=== PATIENT | female | born 1985 | race Caucasian/White ===

== ENCOUNTER 2020-11-13 18:19 | Inpatient (IN) ==
[2020-11-13 19:22] LABS: Urine Appearance Cloudy; Urine Bilirubin Negative (Negative); Urine Blood Negative (Negative); Urine Color Yellow; Urine Glucose Negative (Negative); Urine Ketones Negative (Negative); Urine Nitrite Negative (Negative); Urine Protein Negative (Negative); Urine Urobilinogen Negative (Negative)
[2020-11-13 19:41] LABS: Urine Benzodiazepine Screen None Detected (None Detect); Urine Cannabinoids Screen None Detected (None Detect); Urine Opiates Screen None Detected (None Detect)
[2020-11-13] MEDS ORDERED: Dinoprostone 10 MG VAG.SUPP VAGINAL ONE (19:53)
[2020-11-13 20:12] LABS: ABS Lymphocytes 2.2 10^3/ul (1.0-4.8); ABS Monocytes 0.7 10^3/ul (0-0.8); ABS Neutrophils 5.3 10^3/ul (1.5-7.7); Eosinophil % 0.5 %; Hematocrit 37 % (35-47); Hemoglobin 12.4 g/dL (12.0-16.0); Lymphocyte % 26.4 %; Mean Corpuscular HGB Conc 34 g/dL (31-36); Mean Corpuscular Hemoglobin 31 pg (27-31); Mean Corpuscular Volume 93 fL (80-97); Mean Platelet Volume 12.3 fL (7.4-10.4); Platelet Count 149 10^3/uL (150-450); Red Blood Count 3.96 10^6 /uL (3.70-4.87); Red Cell Distribution Width 14 % (10-15); White Blood Count 8.3 10^3/uL (3.5-10.8)
[2020-11-13 20:53] LABS: Albumin 3.2 g/dL (3.2-5.2); Calcium 8.8 mg/dL (8.6-10.3); Potassium 4.3 mmol/L (3.5-5.0); Total Bilirubin 0.3 mg/dL (0.2-1.0)
[2020-11-13 20:59] LABS: Albumin/Globulin Ratio 1.5 (1-3); BUN/Creatinine Ratio 18.3 (8-20); EGFR African American 138.5 (>60); EGFR Non-African American 114.4 (>60); Globulin 2.2 g/dL (2-4); Total Protein 5.4 g/dL (6.4-8.9); Uric Acid 6.1 mg/dL (2.3-6.6)
[2020-11-14] MEDS ORDERED: Buffered Lidocaine 1% SYRIN 1 ml INTRADERM ONE (10:50)
[2020-11-14] MEDS ORDERED: Lactated Ringers 1000 ml BAG 1,000 ML IV ONE (10:50)
[2020-11-14] MEDS ORDERED: Lactated Ringers 1000 ml BAG 1,000 ML IV SCH (11:00)
[2020-11-14] MEDS ORDERED: Dinoprostone 10 MG VAG.SUPP VAGINAL ONE (19:46)
[2020-11-14] MEDS ORDERED: Penicillin G Potassium IV 5,000,000 UNITS in NS 0.9% 100 ml BAG 100 ML IVPB ONE (21:24)
[2020-11-14 22:40] LABS: Hematocrit 36 % (35-47); Hemoglobin 12.4 g/dL (12.0-16.0); Mean Corpuscular HGB Conc 34 g/dL (31-36); Mean Corpuscular Hemoglobin 32 pg (27-31); Mean Corpuscular Volume 92 fL (80-97); Platelet Count 155 10^3/uL (150-450); Red Blood Count 3.94 10^6 /uL (3.70-4.87); Red Cell Distribution Width 13 % (10-15); White Blood Count 8.8 10^3/uL (3.5-10.8)
[2020-11-14 22:44] LABS: ABS Basophils 0.1 10^3/ul (0-0.2); ABS Lymphocytes 2.1 10^3/ul (1.0-4.8); ABS Monocytes 0.8 10^3/ul (0-0.8); ABS Neutrophils 5.8 10^3/ul (1.5-7.7); Eosinophil % 0.4 %; Lymphocyte % 23.7 %
[2020-11-14 23:09] LABS: ALT 18 U/L (7-52); Albumin 3.2 g/dL (3.2-5.2); Albumin/Globulin Ratio 1.3 (1-3); Alkaline Phosphatase 229 U/L (34-104); BUN/Creatinine Ratio 17.5 (8-20); Blood Urea Nitrogen 11 mg/dL (6-24); CO2 Carbon Dioxide 18 mmol/L (22-32); Calcium 9.1 mg/dL (8.6-10.3); Chloride 107 mmol/L (101-111); EGFR African American 130.9 (>60); EGFR Non-African American 108.2 (>60); Globulin 2.5 g/dL (2-4); Glucose 116 mg/dL (70-100); Sodium 134 mmol/L (135-145); Total Protein 5.7 g/dL (6.4-8.9); Uric Acid 5.2 mg/dL (2.3-6.6)
[2020-11-14 23:28] LABS: Anion Gap 9 mmol/L (2-11)
[2020-11-15] MEDS ORDERED: Vancomycin 2,000 MG in NS 0.9% 250 ml 250 ML IVPB ONE
[2020-11-15] MEDS ORDERED: Penicillin G Potassium IV 3,000,000 UNITS in NS 0.9% 100 ml BAG 100 ML IVPB SCH (03:00)
[2020-11-15] MEDS: Clindamycin 900 MG/D5W BAG 900 MG/50 ML BAG IVPB SCH ×3 (03:27→19:32)
[2020-11-15] MEDS ORDERED: OBEPIDURAL 250 ML EPIDURAL ONE (04:20)
[2020-11-15] MEDS: Gentamicin ADULT 450 MG in NS 0.9% 100 ml BAG 100 ML IVPB SCH (05:33)
[2020-11-15] MEDS ORDERED: Lactated Ringers 1000 ml BAG 1,000 ML IV ONE (05:47)
[2020-11-15] MEDS ORDERED: Lactated Ringers 1000 ml BAG 500 ML IV PRN ×2 (05:47)
[2020-11-15] MEDS ORDERED: Sodium Citrate/Citric Acid LIQ 15 ML UDC PO PRN (05:47)
[2020-11-15] MEDS ORDERED: Phenylephrine 40 mcg/mL 10mL (400mcg) SYRINGE IV PUSH PRN ×2 (05:47)
[2020-11-15] MEDS ORDERED: OBEPIDURAL 250 ML EPIDURAL SCH (06:00)
[2020-11-15] MEDS: Oxytocin in LR 20 UNITS/1,000 ML BAG IVPB SCH (06:29)
[2020-11-15] MEDS ORDERED: Vancomycin 1,000 MG in NS 0.9% 250 ml 250 ML IVPB SCH (12:00)
[2020-11-15] MEDS: Lactated Ringers 1000 ml BAG 1,000 ML IV SCH ×2 (14:35→18:48)
[2020-11-15] MEDS ORDERED: Calcium Carb (TUMS) 500 mg CHEW TAB PO PRN (17:01)
[2020-11-16] MEDS: Oxytocin in LR 20 UNITS/1,000 ML BAG IVPB SCH (00:41)
[2020-11-16] MEDS ORDERED: fentaNYL 100 mcg/2 ml 50 MCG/ML VIAL ONE (00:42)
[2020-11-16] MEDS ORDERED: Carboprost Tromethamine 250 mcg 1 ml VIAL ONE (00:43)
[2020-11-16] MEDS ORDERED: Witch Hazel PAD JAR TOPICAL PRN (01:40)
[2020-11-16] MEDS ORDERED: Dibucaine 1% OINT 28.35 GM TUBE PR PRN (01:40)
[2020-11-16] MEDS ORDERED: Glycerin ADULT 2.4 gm SUPP PR PRN (01:40)
[2020-11-16] MEDS ORDERED: Measles, Mumps,Rubella VACC 0.5 ML/VIAL SUBCUT ONE (01:40)
[2020-11-16] MEDS ORDERED: Oxytocin in LR 20 UNITS/1,000 ML BAG IVPB SCH (02:00)
[2020-11-16] MEDS: Clindamycin 900 MG/D5W BAG 900 MG/50 ML BAG IVPB SCH ×4 (02:56→18:49)
[2020-11-16 03:18] LABS: Hematocrit 25 % (35-47); Hemoglobin 8.2 g/dL (12.0-16.0)
[2020-11-16] MEDS: Gentamicin ADULT 450 MG in NS 0.9% 100 ml BAG 100 ML IVPB SCH (03:49)
[2020-11-16 09:01] LABS: ABS Basophils 0.1 10^3/ul (0-0.2); ABS Lymphocytes 1.8 10^3/ul (1.0-4.8); ABS Neutrophils 12.5 10^3/ul (1.5-7.7); Hematocrit 23 % (35-47); Hemoglobin 7.7 g/dL (12.0-16.0); Mean Corpuscular HGB Conc 34 g/dL (31-36); Mean Corpuscular Hemoglobin 31 pg (27-31); Mean Corpuscular Volume 92 fL (80-97); Nucleated Red Blood Cells % 0.1; Platelet Count 128 10^3/uL (150-450); Red Blood Count 2.47 10^6 /uL (3.70-4.87); Red Cell Distribution Width 14 % (10-15); White Blood Count 15.4 10^3/uL (3.5-10.8)
[2020-11-16 09:12] LABS: Albumin 2.2 g/dL (3.2-5.2); Albumin/Globulin Ratio 1.2 (1-3); BUN/Creatinine Ratio 13.9 (8-20); Calcium 7.6 mg/dL (8.6-10.3); EGFR African American 70.3 (>60); EGFR Non-African American 58.1 (>60); Globulin 1.9 g/dL (2-4); Potassium 4.7 mmol/L (3.5-5.0); Total Bilirubin 0.2 mg/dL (0.2-1.0); Total Protein 4.1 g/dL (6.4-8.9)
[2020-11-17] MEDS: Clindamycin 900 MG/D5W BAG 900 MG/50 ML BAG IVPB SCH ×2 (03:01→15:13)
[2020-11-17 04:04] LABS: ABS Eosinophils 0.1 10^3/ul (0-0.6); ABS Lymphocytes 2.9 10^3/ul (1.0-4.8); ABS Monocytes 0.9 10^3/ul (0-0.8); ABS Neutrophils 8.6 10^3/ul (1.5-7.7); Eosinophil % 0.5 %; Hematocrit 29 % (35-47); Hemoglobin 9.5 g/dL (12.0-16.0); Lymphocyte % 23.4 %; Mean Corpuscular HGB Conc 33 g/dL (31-36); Mean Corpuscular Hemoglobin 31 pg (27-31); Mean Corpuscular Volume 92 fL (80-97); Mean Platelet Volume 11.2 fL (7.4-10.4); Platelet Count 138 10^3/uL (150-450); Red Blood Count 3.09 10^6 /uL (3.70-4.87); Red Cell Distribution Width 14 % (10-15); White Blood Count 12.4 10^3/uL (3.5-10.8)
[2020-11-17] MEDS: Gentamicin ADULT 450 MG in NS 0.9% 100 ml BAG 100 ML IVPB SCH (04:17)
[2020-11-17 04:19] LABS: EGFR African American 95.2 (>60); EGFR Non-African American 78.7 (>60)
[2020-11-18 07:46] VITALS: BP 117/69
[2020-11-18] MEDS ORDERED: Measles, Mumps,Rubella VACC 0.5 ML/VIAL ONE (09:30)
== END 2020-11-18 18:43 | disposition home or self-care (01) | DRG 541 ==
LOC: MCHOBOUT 18:19 → MCHOB 21:55
PROVIDERS: ADMIT Midwife; ATTEND Midwife

== ENCOUNTER 2023-05-04 02:54 | Inpatient (IN) ==
[2023-05-04] MEDS ORDERED: Buffered Lidocaine 1% SYRIN 1 ml INTRADERM ONE (03:14)
[2023-05-04] MEDS ORDERED: Lactated Ringers 1000 ml BAG 1,000 ML IV ONE (03:14)
[2023-05-04] MEDS ORDERED: ceFAZolin 2 GM in NS PREMIX 2 GM/100 ML BAG IVPB ONE (03:21)
[2023-05-04] MEDS ORDERED: Oxytocin in LR 20,000 MILLI.UNIT/1,000 ML BAG IV ONE (03:47)
[2023-05-04] MEDS ORDERED: ceFAZolin 2 GM/50 ML BAG IV ONE (04:00)
[2023-05-04] MEDS ORDERED: Lactated Ringers 1000 ml BAG 1,000 ML IV SCH ×2 (04:00→05:00)
[2023-05-04] MEDS ORDERED: Methylergonovine 0.2 mg AMPULE 1 ml AMP ONE (04:03)
[2023-05-04] MEDS ORDERED: Glycerin ADULT 2.4 gm SUPP PR PRN (04:54)
[2023-05-04] MEDS ORDERED: Methylergonovine 0.2 mg AMPULE 1 ml AMP IM ONE (04:54)
[2023-05-04] MEDS ORDERED: Oxytocin in LR 20,000 MILLI.UNIT/1,000 ML BAG IV SCH (04:55)
[2023-05-04 05:13] LABS: ABS Lymphocytes 1.4 10^3/uL (1.0-4.8); ABS Monocytes 0.5 10^3/uL (0.0-0.9); ABS Neutrophils 7.5 10^3/uL (1.5-7.6); Eosinophil % 0.1 %; Hematocrit 39.4 % (35-45); Hemoglobin 13.4 g/dL (11.5-14.3); Lymphocyte % 14.8 %; Mean Corpuscular Hemoglobin 30.8 pg (27-33); Mean Corpuscular Volume 90.6 fL (80-97); Nucleated Red Blood Cells % 0.1 /100 WBC (0.0-0.4); Platelet Count 157 10^3/uL (150-450); Red Blood Count 4.35 10^6/uL (3.63-4.92); White Blood Count 9.4 10^3/uL (3.8-11.8)
[2023-05-04] MEDS: Dibucaine 1% OINT 28.35 GM TUBE PR PRN ×2 (05:39→20:08)
[2023-05-04] MEDS: Witch Hazel PAD JAR TOPICAL PRN ×2 (05:39→20:08)
[2023-05-04 15:40] LABS: Urine Benzodiazepine Screen None Detected (None Detect); Urine Cannabinoids Screen None Detected (None Detect); Urine Opiates Screen None Detected (None Detect)
[2023-05-05 07:05] LABS: ABS Lymphocytes 2.3 10^3/uL (1.0-4.8); ABS Monocytes 0.7 10^3/uL (0.0-0.9); Eosinophil % 0.4 %; Hemoglobin 7.9 g/dL (11.5-14.3); Mean Corpuscular Hemoglobin 31.1 pg (27-33); Mean Corpuscular Hgb Conc 34.3 g/dL (31-36); Mean Corpuscular Volume 90.5 fL (80-97); Mean Platelet Volume 10.9 fL (7.5-11.2); Platelet Count 127 10^3/uL (150-450); Red Blood Count 2.54 10^6/uL (3.63-4.92); Red Cell Distribution Width 14.3 % (12-17); White Blood Count 8.1 10^3/uL (3.8-11.8)
[2023-05-05] MEDS: ceFAZolin VIAL 1 GM in NS 0.9% 50 ML 50 ML IVPB SCH ×2 (20:07→20:08)
[2023-05-06 08:41] VITALS: BP 113/61
== END 2023-05-06 12:42 | disposition home or self-care (01) | DRG 560 ==
LOC: MCHOBOUT 02:54 → MCHOB 03:03
PROVIDERS: ADMIT Midwife; ATTEND Midwife